=== PATIENT | female | born 1960 | race Caucasian/White ===

== ENCOUNTER 2016-12-03 15:46 | Emergency (ER) | payer MEDICARE, MEDICAID ==
--- NOTE | 2016-12-09 10:35 | ER ---
ADMIT: 12/03/2016 RM/LOC: ER [facility] MR#: [id number] [facility] [address] [place], [place] [id number] JAEL MOURA [address] [place] [id number] Emergency Room Report SEX: F AGE: 56 : 1960 DATE: 12/03/2016 ADDENDUM: A 56-year-old white female with sarcoidosis, coming with chest pain. She has had a heart cath recently, which showed no disease, more twinges. She is more worried about whether the enzymes are up or not. Her lab is completely negative. At this time, we are going to discharge her out and she will follow up with her doc. Chest x-ray, everything is essentially unchanged. She is okay with that. Advised to return if she has any other problems. 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 CONDITION ON DISCHARGE: Good. Frandy Boateng MD/ leydi JOB #: [id number] CC: Frandy Boateng MD, Attending Physician Jam Contreras MD, Family Physician
== END 2016-12-03 18:35 | disposition home or self-care (01) ==
LOC: ER 15:46
DX: R07.89 Other chest pain (principal); D86.9 Sarcoidosis, unspecified; I50.9 Heart failure, unspecified